=== PATIENT | male | born 1990 | race Caucasian/White ===

== ENCOUNTER 2018-03-05 08:18 | Emergency (ER) | payer OTHER, SELFPAY ==
[2018-03-05 08:20] VITALS: BP 125/95; PULSE 69; RESP 18; TEMP 36.7; O2SAT 98; BMI 27.1
--- NOTE | 2018-03-05 08:38 | RAD_ITS ---
STUDY: X-RAY - RIGHT KNEE REASON FOR EXAM: Male, 28 years old. Right knee pain. Mohave a pop a few days ago. Painful to ambulate. TECHNIQUE: 4 view(s) of the knee. COMPARISON: None. FINDINGS: Normal visualized distal femur. Normal visualized proximal tibia and fibula. Normal proximal tibiofibular articulation. Normal medial femorotibial compartment. Normal lateral femorotibial compartment. Normal patellofemoral articulation. The soft tissue structures are unremarkable. RAD/Knee 4 or More Views IMPRESSION: Normal x-ray examination of the right knee. Electronically Signed: Jose Camara MD at 9:11 EST , Service support ,
[2018-03-05] MEDS: Naproxen 500 MG Tablet PO (08:45)
--- NOTE | 2018-03-05 09:19 | ED.DCSUM_ITS ---
- ER Visit Summary Date of Service: 03/05/18 Chief Complaint: Right knee pain History of Present Illness: The patient is a 28 M with no primary care physician. He reports that 3 days ago he was walking around and felt a pop in his right knee. Reports that since that time he had an aching pain 3-10 at wors t and 1 out of 10 currently. Is worsened by walking or going up steps. Is relieved by rest. He denies any other complaints. Physical Examination: Vitals: Stable. Afebrile. General: Well-nourished and well-developed. Head: Normocephalic atraumatic. Neck: Supple, no lymphadenopathy. No JVD. Nontender. Cardiovascular: Regular rate and rhythm. No murmurs. Respiratory: No respiratory distress. Clear to auscultation bilaterally. Abdominal: Soft, nontender, nondistended, normal bowel sounds. No guarding, rebound, or peritoneal signs. Back: Nontender. Extremities: No appreciable effusion. No pain or ligamentous instability with anterior/posterior drawer or medial/lateral stress. Negative Bautista bilaterally. He is neurovascular intact distal to this. Skin: Normal color, no rash. Neurologic: Alert and oriented ?3. Cranial nerves II through XII are intact. Normal strength and sensation. Psych: Normal affect. Test Results: X-ray shows no acute disease. Emergency Department Course and Treatment: Patient was treated with naproxen. He refused crutches. Treatment Plan: Patient will be discharged with naproxen. Instructed to ice. Did discuss them the possibility that he may have a meniscal injury. He is instructed Dr. Reyes in 1-2 weeks if not improving. Return to the emergency department for any worsening symptoms. Disposition: To home in improved and stable condition. Impression: 1. Right knee pain, acute. This note was generated with [employer] dictation software. It may contain incorrect words, spelling, and punctuation that were not noted in review of the chart prior to signing ED Disposition - Plan for ED Patient: Disposition: Home or Assisted Living Chief Complaint: Lower Extremity Injury Instructions: ED Meniscal Injury Knee Poss Prescriptions: Naproxen [Naprosyn] 500 mg PO BID #14 tablet Referrals: Maik Reyes DO [STAFF PHYSICIAN] - 1-2 Weeks
[2018-03-05 09:28] VITALS: BP 141/67; PULSE 69; RESP 18
== END 2018-03-05 09:31 | disposition home or self-care (01) ==
LOC: ED 08:41
PROVIDERS: Emergency Provider Emergency Medicine; Family Provider Student in an Organized Health Care Education/Training Program; PCP Student in an Organized Health Care Education/Training Program
DX: M25.561 Pain in right knee (principal)
CPT/HCPCS: 73564; 99283

== ENCOUNTER 2020-03-25 19:48 | Emergency (ER) | payer OTHER, SELFPAY ==
[2020-03-25 19:48] VITALS: BP 149/83; PULSE 73; RESP 15; TEMP 36.1; O2SAT 98; BMI 28.1
--- NOTE | 2020-03-25 20:05 | RAD_ITS ---
HISTORY: Dog bite to lateral 5th digit. Technique: 3 images of the fourth and fifth digits of the right hand Comparison: None available Findings: No acute fracture or dislocation. Osseous mineralization, joint spaces, and alignment otherwise appear preserved as imaged. No focal abnormality or radiopaque foreign body is seen in the surrounding soft tissues. RAD/Finger(s) Min 2 Views IMPRESSION: No acute osseous abnormality identified in the right fourth and fifth digits. There is a small area of irregular skin contour at the level of the fifth proximal interphalangeal joint which may be indicative of a puncture wound or laceration.. at 2052 Reported and signed by: Louis Mcclure MD Electronically Signed: Louis Mcclure MD at 20:51 EST Tel , Service support ,
--- NOTE | 2020-03-25 20:08 | ED.DCSUM_ITS ---
History of Present Illness Chief Complaint: Bite Informant: Patient Narrative: Patient presents with dog bite to the right hand. He tells me he ordered 5 guys for dinner tonight and they delivered. He was trying to get his dog away from the door when the dog bit him. Tetanus is not up-to-date. Past Medical History - Allergies and Home Meds Allergies/Adverse Reactions: Allergies No Known Allergies Allergy (Verified 03/25/20 19:50) Primary Care Physician: Malachi Frederick DO [Primary Care Provider] - 10 Day for suture removal Past Medical History: - - Vasovagal syncope Surgical History: noncontributory Lives: Spouse/ Significant Other Smoking Status: Never smoker Drugs: None Review of Systems General: Denies: Chills, Fever, Sweats Eyes: Denies: Visual changes - bilaterally, Diplopia ENT: Denies: Rhinorrhea, Sore throat Cardiovascular: Denies: Chest pain, Palpitations Respiratory: Denies: Dyspnea, Cough, Dyspnea on exertion Gastrointestinal: Denies: Abdominal pain, Nausea, Vomiting, Diarrhea, Melena, Hematochezia Genitourinary: Denies: Dysuria, Hematuria, Frequency Musculoskeletal: Denies: Back pain, Extremity Pain Skin: Reports: Wounds. Denies: Rash Neurological: Denies: Headache, Weakness, Numbness Physical Exam Vital Signs/Narrative: Vital Signs Temp Pulse Resp BP Pulse Ox 03/25/20 19:48 97 F L 73 15 149/83 H 98 Inital Vital Signs reviewed: Yes General: Well nourished, Well developed, No Acute Distress Head: Normocephalic, Atraumatic Eyes: Perrl, EOMI ENT: Moist mucous membranes, No rhinorrhea Neck: Supple, Nontender Cardiovascular: Regular rate, Regular rhythm, No murmurs Respiratory: No distress, CTA bilaterally, Chest nontender Abdomen: Soft, Nontender, Nondistended, Normal bowel sounds Back: Nontender, Normal Inspection Extremities: No edema Skin: Normal color, No rash, Trauma - There is a V-shaped 2 cm laceration over the medial aspect of the right little finger. It is gaping with flexion. There is a small puncture wound just proximal to it and another puncture wound on the lateral aspect of the little finger. Neurological: Alert, Oriented x3, Cranial nerves II-XII grossly intact, Normal Strength, Normal Sensation Psychological: Normal affect, Normal Mood Diagnostic/Tx/Re-eval - Medical Decision Making My interpretation of the 3 view finger x-ray was negative for bony injury or o bvious foreign body. Wound was locally anesthetized using 1% lidocaine. Is washed with Shur-Clens and explored. A single 4-0 Ethilon suture was used to close the wound. It is taken through its range of motion and was not gaping. Patient was advised stitches will need to be removed in 10 days. He is to be placed on Augmentin. He is advised this is a high risk for infection return if worsening or concerns. ED Disposition - Plan for ED Patient: Disposition: Home or Assisted Living Diagnosis: Dog bite of right hand, Finger laceration Instructions: ED Dog Bite, ED Laceration, Hand: All Closures Prescriptions: Amox/Clavulanate Tablet [Augmentin Tablet] 875 mg PO Q12H #20 tab Prescription Printed Referrals: Malachi Frederick DO [Primary Care Provider] - 10 Day for suture removal
[2020-03-25] MEDS: Diphth,Pertuss(Acell),Tet Vac 0.5 ML Vial IM (20:20)
[2020-03-25] MEDS: Lidocaine 1% (20 ml mdv) 20 ML Vial INFILT (20:21)
== END 2020-03-25 21:17 | disposition home or self-care (01) ==
LOC: ED 20:31
PROVIDERS: Emergency Provider Emergency Medicine
DX: S61.451A Open bite of right hand, initial encounter (principal); S61.216A Laceration without foreign body of right little finger without damage to nail, initial encounter; W54.0XXA Bitten by dog, initial encounter; Z23 Encounter for immunization
CPT/HCPCS: 12001; 73140; 90715; 99283